=== PATIENT | male | born 1990 | race Caucasian/White ===

== ENCOUNTER 2018-11-22 20:15 | Emergency (ER) | payer BC, SELFPAY ==
[2018-11-22 20:17] VITALS: BP 110/74; PULSE 115; RESP 18; TEMP 36.6; O2SAT 100; BMI 26.4
--- NOTE | 2018-11-22 20:33 | EKG12_ITS ---
Test Reason : SHORTNESS OF BREATH Blood Pressure : / mmHG Vent. Rate : 094 BPM Atrial Rate : 094 BPM P-R Int : 126 ms QRS Dur : 094 ms QT Int : 354 ms P-R-T Axes : 035 057 033 degrees QTc Int : 442 ms Normal sinus rhythm Normal ECG Confirmed by SYD WHITTINGTON, RAFY ([id number]), business editor LAUREL PINK ([id number]) on 11/25/2018 11:18:00 AM Referred By: ROSALEE Confirmed By:RAFY VELARDE MD
--- NOTE | 2018-11-22 20:42 | ED.RN ---
NO OLD EKGS IN MUSE
[2018-11-22 20:52] VITALS: BP 124/80; PULSE 99; RESP 14; O2SAT 99
[2018-11-22 20:53] VITALS: O2SAT 99
[2018-11-22 20:57] VITALS: PULSE 110; RESP 18
[2018-11-22] MEDS: Ipratropium/Albuterol Sulfate 3 ML AMPUL.NEB INHALATION (20:57)
[2018-11-22 21:01] LABS: Absolute Lymphocyte Count 0.58 X10^3/ul (0.83-4.51); Absolute Neutrophil Count 13.5 X10^3/uL (2.0-7.7); Basophil# 0.02 X10^3/uL; Basophil% 0.1 % (0-1); Eosinophil# 0.05 X10^3/uL; Eosinophils% 0.3 % (0-5); Hematocrit 48.2 % (40-54); Hemoglobin 16.8 g/dl (13.0-16.5); Lymphocyte # 0.58 X10^3/ul (4.0); Lymphocyte % 3.9 % (19-41); Mean Corp Hgb Conc 34.9 g/gl (32-36); Mean Corpuscular Volume 86.1 fL (80-94); Mean Platelet Vol. 11.6 fl (6.2-12.0); Monocyte# 0.82 X10^3/uL; Monocyte% 5.5 % (0-10); Neutrophil # 13.52 X10^3/uL (2.7-7.7); Neutrophil % 89.9 % (47-70); Platelet Count 207 K/mm3 (150-450); RBC Distribution Width CV 12.6 % (11.6-14.6); RBC Distribution Width SD 39.5 fl (35.1-43.9)
[2018-11-22 21:05] LABS: Differential Indicated SCAN CRITERIA MET; POSITIVE COUNT NO; POSITIVE DIFFERENTIAL YES; POSITIVE MORPHOLOGY NO
--- NOTE | 2018-11-22 21:17 | RAD_ITS ---
STUDY: X-RAY CHEST REASON FOR EXAM: Male, 28 years old. Shortness of breath TECHNIQUE: Frontal and lateral views of the chest COMPARISON: None. FINDINGS: The lungs are clear. There are no pleural effusions. There is no pneumothorax. The heart is normal in size. The visualized osseous structures are within normal limits. RAD/Chest PA and Lateral IMPRESSION: No acute thoracic pathology. Electronically Signed: Gonzalez Antonio, at 22:11 EDT Tel , Service support ,
[2018-11-22 21:19] LABS: ALB/GLOB Ratio 1.2 RATIO (0.9-2.4); AST(SGOT) 27 U/L (15-37); Alanine Aminotransfer ALT/SGPT 31 U/L (16-61); Albumin, Serum 4.8 g/dL (3.2-5.0); Alkaline Phosphatase 82 U/L (45-117); Anion Gap 9 (5-15); BUN 15 mg/dL (7-18); BUN/Creat Ratio 11.2 RATIO (10-20); Calcium,Total 9.5 mg/dL (8.5-10.1); Chloride 106 mmol/L (98-107); Creatinine, Serum 1.34 mg/dL (0.70-1.30); EST Glomerular Filtration Rate 68 mL/min (>60); Est Glom Filt Rate - Afr Amer 83 mL/min (>60); Estimated Creatinine Clearance 75.39 ml/min; Globulin 3.9 g/dL (2.2-4.2); Glucose 118 mg/dL (74-106); Lipase 117 U/L (73-393); Potassium 3.3 mmol/L (3.5-5.1); Protein, Total 8.7 g/dL (6.4-8.2); Sodium Level 138 mmol/L (136-145)
[2018-11-22 21:28] LABS: Differential Comment SCANNED
[2018-11-22] MEDS: Ondansetron 4 MG/2 ML Vial IV (21:28)
[2018-11-22 22:05] LABS: Bacteria 0 SEEN /hpf (None Seen); Mucous, Urine 0 SEEN /hpf (<or=2+); Red Blood Cells-Urine 0 SEEN /hpf (0-5)
[2018-11-22 22:12] VITALS: BP 131/79; PULSE 95; RESP 13; O2SAT 100
[2018-11-22 22:14] LABS: Color, Urine Yellow (Yellow); Glucose, Dipstick Normal (Normal); Leukocyte Esterase-Dipstick 25 /ul (Negative); Nitrite-Dipstick Negative (Negative); Occult Blood-Urine Negative /ul (Negative); Protein-Dipstick 30 mg/dl (Negative); Urine Clarity Sl. Cloudy (Clear); Urine Urobilinogen Normal (Normal)
[2018-11-22 22:17] LABS: Urine Bilirubin Dipstick 1 mg/dL (Negative)
[2018-11-22 22:18] LABS: Ketone-Dipstick 150 mg/dl (Negative)
[2018-11-22 22:21] LABS: Squamous Epithelial Cells - UA 0-5 SEEN /hpf (0-5); White Blood Cells 0-5 SEEN /hpf (0-5)
--- NOTE | 2018-11-22 23:28 | ED.VISSUMM ---
- ER Visit Summary Date of Service: 11/22/18 Chief Complaint: Shortness of breath History of Present Illness: The patient is a 28 M who presents with shortness of breath that began today. Patient states he was at rest when this began. Patient denies any cough or fevers. Patient denies any chest pain. Patient admits to some tingling in his hands and face. Patient admits to nausea and abdominal pain. Patient denies any vomiting or diarrhea. Patient denies any urinary complaints. Physical Examination: Vital signs are stable except for mild tachycardia of 115. Oral mucosa is pink and moist. Neck is supple. Trachea is midline. There is no JVD noted. Heart was regular and tachycardic. Lungs are clear and equal bilateral. Abdomen is soft and nontender. Cranial nerves II through XII are intact. There are no focal motor or sensory deficits noted. The remaining physical exam is within normal limits. Test Results: EKG showed normal sinus rhythm with a rate of 94. There are no acute ST or T wave changes. CBC shows a white blood cell count of 15.0. Potassium was 3.3. Creatinine was slightly elevated at 1.34. Urinalysis showed ketones of 150. There is no evidence of urinary tract infection. Emergency Department Course and Treatment: Patient was given albuterol and Atrovent aerosol here. Patient was given Zofran. Patient was given IV fluids. Patient felt better on reevaluation. Patient was instructed to follow-up with his primary care physician in 5-7 days. Patient understood and was agreeable with the plan. All questions were answered. Disposition: Discharge home Impression: 1. Generalized weakness 2. Dehydration This note was generated with [employer] dictation software. It may contain incorrect words, spelling, and punctuation that were not noted in review of the chart prior to signing ED Disposition - Plan for ED Patient: Disposition: Home or Assisted Living Diagnosis: Dehydration, General weakness Instructions: ED Dehydration Referrals: Care Physician,No Primary [Primary Care Provider] -
[2018-11-22 23:57] VITALS: BP 119/82; PULSE 106; RESP 16; O2SAT 100
== END 2018-11-22 23:58 | disposition home or self-care (01) ==
PROVIDERS: Emergency Provider Emergency Medicine
DX: E86.0 Dehydration (principal); R53.1 Weakness; R06.02 Shortness of breath
CPT/HCPCS: 71046; 80053; 81001; 83690; 85025; 93005; 94640; 96374; 99284; A4216; J2405